=== PATIENT | male | born 1960 ===

== ENCOUNTER 2019-04-06 00:43 | Outpatient (CLI) | payer SELFPAY ==
[2019-04-06 08:36] LABS: HEMOGLOBIN A1C 5.1 % (4.5-6.2)
[2019-04-06 08:52] LABS: CHOL/HDL RATIO 4.8 (0.00-4.99)
== END 2019-04-06 23:59 | disposition home or self-care (01) ==
LOC: HW HEART 00:43
DX: Z13.6 Encounter for screening for cardiovascular disorders (principal)
CPT/HCPCS: 36415